=== PATIENT | female | born 1935 | race Caucasian/White ===

== ENCOUNTER 2018-04-10 06:33 | Day surgery (SDC) | payer MEDICARE, BC ==
[2018-04-10 07:36] VITALS: BMI 21.2
[2018-04-10] MEDS ORDERED: Acetaminophen 500 MG TAB ONE (09:35)
--- NOTE | 2018-04-10 10:29 | RAD ---
LUMBAR SPINE MYELOGRAM INDICATION: Low back pain, lumbar radiculopathy. PROCEDURE: After informed consent had been obtained, the patient was escorted to the interventional suite and pl aced on the procedural table. [employer] imaging was performed. The patient was placed into a prone posi tion. Skin on the low back was then prepped and draped in the standard sterile fashion and topical a nd regional soft tissue anesthesia was achieved with 1% lidocaine and sodium bicarbonate. Right inte rlaminar L5 level approach was selected, and a 22 gauge needle was uneventfully advanced into the the mark sac with clear color CSF. Subsequently, 9 cc Isovue was instilled into the thecal sac under real time fluoroscopy. Appropriate opacification of thecal sac demonstrated with imaging stored for [facility] irmation. The needle was then removed from the patient. The patient tolerated the procedure well an d was then transferred to CT to undergo subsequent myelogram. Reference separate report for full det ails. FLUOROSCOPY DATA: 0.1 minutes intermittent fluoroscopy. IMPRESSION: Technically successful lumbar myelogram as detailed above. POS: [facility]
--- NOTE | 2018-04-10 10:49 | CT ---
CT LUMBAR SPINE WITH CONTRAST: CT LUMBAR MYELOGRAM: CLINICALLY INDICATIONS: Low back pain. Lumbar radiculopathy. TECHNIQUE: Please reference the procedural report of the exam, under the myelogram report, for procedural detail s. FINDINGS: There is sedimentation of contrast at the lower aspect of the lumbosacral spinal canal, as the patien t could not tolerate rotation for the purposes of intermixing the contrast within the thecal sac and, therefore, this did result in a layering/sedimentation of the contrast within the thecal sac. This is significantly compounded by a high degree of stenosis at the L4-L5 level, which impedes the flow o f contrast within the thecal sac. [id number], there is contrast opacification of the thecal sac throughout the lumbar spine. The conus medullaris terminates at the L1 level. There is grade 1 spondylolisthesis at L4-L5, with associated bilateral moderate facet osteoarthritis. L5-S1: There is no high-grade compromise of the terminal thecal sac or significant neural foraminal s tenosis. There is bilateral moderate degenerative facet hypertrophy and a mild osteophyte ridge. L4-L5: There is grade 1 spondylolisthesis, as discussed above. Listhesis, when combined with disk osteophyte, redundancy of ligamentous flavum, and prominent bilate ral facet osteoarthritis, results in severe central canal stenosis. There is mild bilateral neural f oraminal narrowing. L3-L4: Broad-based disk osteophyte is present with moderate narrowing in the central canal. There i s no significant neural foraminal stenosis. L2-L3: There is minimal effacement of the ventral thecal sac without high-grade central canal or jordan ral foraminal stenosis. L1-L2: Slight effacement of the ventral thecal sac without high-grade central canal or neural forami nal stenosis. Incidental note of cholelithiasis. There is atherosclerotic vascular disease. There is a large volu me of retained material within the colon. IMPRESSION: 1. Severe central canal stenosis at L4-L5, related to grade I spondylolisthesis, in addition to disk degenerative disease, redundancy of the ligamentum flavum, and prominent facet osteoarthritis. 2. Incidental note of cholelithiasis. POS: [facility]
== END 2018-04-10 11:05 | disposition home or self-care (01) ==
LOC: RAD 06:33
PROVIDERS: ATTEND Neurological Surgery
PROC: B01B1ZZ Fluoroscopy of Spinal Cord using Low Osmolar Contrast (ICD-10-PCS; principal; 2018-04-10)
DX: M47.26 Other spondylosis with radiculopathy, lumbar region (principal); M43.16 Spondylolisthesis, lumbar region; M51.16 Intervertebral disc disorders with radiculopathy, lumbar region; M48.061 Spinal stenosis, lumbar region without neurogenic claudication; K80.20 Calculus of gallbladder without cholecystitis without obstruction; Z79.52 Long term (current) use of systemic steroids; Z79.899 Other long term (current) drug therapy; Z91.041 Radiographic dye allergy status
CPT/HCPCS: 62304; 72132

== ENCOUNTER 2018-04-29 07:18 | Day surgery (SDC) | payer MEDICARE, BC ==
[2018-04-26 14:44] VITALS: BMI 20.5
--- NOTE | 2018-04-28 22:13 | HP ---
HOSPITAL COURSE: Ms. Goodman is an 83-year-old woman here by referral of Dr. Jones for evaluation of lower extremity weakness with a CT myelogram performed recently at [facility] which reveals the presence of grade 1 spondylolisthesis at L4-L5 with severe lumbar stenosis. She reports minimal pain, but has significant lower extremity numbness and weakness as well. She is using a wheelchair, but roughly 6-10 months ago, she was using a walker. Also, it is very possible this relates to the deconditioning that she has experienced. PAST MEDICAL HISTORY: Significant for hypothyroidism, anxiety, neuropathy. PAST SURGICAL HISTORY: None. CURRENT MEDICATIONS: 1. VESIcare. 2. Sertraline. 3. Omeprazole. 4. Levothyroxine. 5. Gabapentin. 6. Tramadol. ALLERGIES: NO KNOWN DRUG ALLERGIES. PHYSICAL EXAMINATION: GENERAL: The patient is alert and oriented. EXTREMITIES: Her lower extremity motor exam reveals weakness with extension of the knee with plantar and dorsiflexion of bilateral lower extremities. She is in a wheelchair and unable to ambulate well on her own without considerable difficulty. ASSESSMENT: Lumbar spinal stenosis. PLAN: Dr. English met with the patient, reviewed imaging, advocated for L4-L5 decompression. He explained to the patient the risks, benefits, and alternatives to the procedure. The patient expressed understanding and elected to move forward with surgery as discussed. I do believe the patient is mentally competent and capable of making medical decisions for herself. We will move forward with surgery as planned. Job ID: [id number]
[2018-04-29] MEDS ORDERED: CEFAZOLIN 2 GM/50 ML BAG ONE (07:44)
[2018-04-29] MEDS ORDERED: Bupivacaine HCl 0.5%/Epinephrine 1:200,000/PF 30 ml Vial ONE (10:30)
[2018-04-29] MEDS ORDERED: Thrombin 5000 UNITS/5 ML VIAL ONE (10:30)
[2018-04-29] MEDS ORDERED: Fentanyl 100 MCG/2 ML VIAL ONE ×3 (10:39→12:46)
[2018-04-29] MEDS ORDERED: Promethazine HCl 25 MG/ML VIAL SLOW IVP PRN (12:08)
[2018-04-29] MEDS ORDERED: Promethazine HCl 25 MG/ML VIAL IM PRN (12:08)
[2018-04-29] MEDS ORDERED: Ondansetron HCl/PF 4 MG/2 ML Vial IVP PRN (12:08)
--- NOTE | 2018-04-29 12:33 | OP ---
DATE OF PROCEDURE: 04/29/2018 PIGSKIN TRIMMER: Greg Garay PA-C INDICATION: Prevent neurologic decline. DIAGNOSES: Lower extremity weakness, lumbar stenosis, neurogenic claudication, and lumbar radiculopathy. PROCEDURE PERFORMED: L4-L5 lumbar decompression. ANESTHESIA: General. DESCRIPTION OF PROCEDURE: The patient was brought into the operating room and placed under general anesthesia. She was flipped from the supine to prone position on the operating room table. A linear incision was planned over the L4-L5 segment. After prepping and draping and after preoperative pause, the incision was created. The soft tissues were swept away from midline. A self-retaining retractor was placed in the wound for optimal exposure. After confirming the appropriate level with C-arm fluoroscopy, an Adson rongeur as well as a high-speed cutting drill bit as well as 2, 3, and 4 mm Kerrisons were used to perform a laminectomy along the inferior aspect of L4 and the superior aspect of L5. We decompressed the central canal at this segment as well as the lateral recesses. The wound was then irrigated. Hemostasis was maintained throughout. The wound was then closed in anatomic layers and a pressure dressing was applied. There were no known procedural complications. Job ID: [id number]
[2018-04-29] MEDS ORDERED: Dexamethasone 20 MG/5 ML VIAL ONE (15:42)
[2018-04-29] MEDS ORDERED: Rocuronium Bromide 10 MG/ML (10ML VIAL) ONE (15:42)
[2018-04-29] MEDS ORDERED: PHENYLEPHRINE-NS 100 MCG/ML 10 ML SYRINGE ONE (15:42)
[2018-04-29] MEDS ORDERED: Ondansetron PF 4 MG/2 ML Vial ONE (15:42)
[2018-04-29] MEDS ORDERED: Glycopyrrolate 0.2 MG/ML 5 ML SYRINGE ONE (15:42)
[2018-04-29] MEDS ORDERED: PROPOFOL 200 MG/20 ML VIAL ONE (15:42)
[2018-04-29] MEDS ORDERED: Lidocaine 1% PF 5 ML VIAL ONE (15:42)
[2018-04-29] MEDS ORDERED: HYDROcodone/Acetaminophen 5/325 mg Tablet ONE (15:45)
== END 2018-04-29 16:46 | disposition home or self-care (01) ==
LOC: SDC 07:18
PROVIDERS: ATTEND Neurological Surgery
PROC: 01NB0ZZ Release Lumbar Nerve, Open Approach (ICD-10-PCS; principal; 2018-04-29)
DX: M48.062 Spinal stenosis, lumbar region with neurogenic claudication (principal); M54.16 Radiculopathy, lumbar region; M43.16 Spondylolisthesis, lumbar region; E03.9 Hypothyroidism, unspecified; F41.9 Anxiety disorder, unspecified; Z91.09 Other allergy status, other than to drugs and biological substances; Z79.899 Other long term (current) drug therapy
CPT/HCPCS: 76000; J0131; J0670; J3010